=== PATIENT | female | born 1980 | race Caucasian/White ===

== ENCOUNTER 2017-06-07 12:07 | Emergency (ER) | payer OTHER ==
[~2017-06-07] VITALS: Ht 165.1 cm; Wt 88.5 kg
[~2017-06-07 12:07] MED LIST: ALBUTEROL INH; ASPIRIN325 PO; ATIVAN1 MG PO; AZITHROMYCIN; AZITHROMYCIN 2250 MG; BACID CAPLET1 EACH PO; CARAFATE 1 GM TA1 G1; CIPRO500 MG PO; CLEOCIN HCL300 MG; DARVON65 MG; DIPHENHIST50 MG PO; DOXYCYCLINE 10100 MG PO; HYDROXYCHLOROQ200 M1; HYDROXYZINE HCL25 M1 PO; LAMICTAL XR100 MG; MEPRON750 MG/5 M; NEURONTIN 300300 M1; NEURONTIN 300300 M1 PO; ONDANSETRON HCL4 M2 PO; OXYCODONE HCL5 M1 PO; PHENERGAN; PROVENTIL HFA6.7 G1 INH; TRINATE TABLET1 TAB PO; VERAPAMIL ER180 MG PO; [UNRECOGNIZED DRUG - OTHER]; [UNRECOGNIZED DRUG - OTHER] PO
[2017-06-07 12:33] LABS: URINE BILIRUBIN NEGATIVE (Negative); URINE BLOOD 3+ (Negative); URINE COLOR YELLOW; URINE GLUCOSE-RANDOM* NEGATIVE (Negative); URINE KETONES NEGATIVE (Negative); URINE NITRITE NEGATIVE (Negative); URINE PROTEIN (DIPSTICK) 1+ (Negative); URINE SPECIFIC GRAVITY 1.025 (1.003-1.035); URINE UROBILINOGEN 0.2 E.U./dl (0.2-1.0)
[2017-06-07 12:38] LABS: CASTS None Seen /LPF (None Seen); CRYSTALS None Seen /LPF (None Seen); SQUAMOUS 0-3 Few /LPF (0-3); URINE RBC >20 Many /HPF (0-2)
[2017-06-07 12:39] LABS: BACTERIA 1-9 Few /HPF (None Seen); URINE WBC 6-15 Few /HPF (0-5)
[2017-06-07 12:44] LABS: ABSOLUTE NEUTROPHILS 5.9 thou/uL (1.4-8.2); BASOPHILS 0.9 % (0.0-2.0); EOSINOPHILS 2.7 % (0.0-3.0); HEMATOCRIT 38.8 % (37.0-47.0); LYMPHOCYTES 30.3 % (24.0-44.0); MCH 28.4 pg (26.0-34.0); MCHC 33.5 g/dL (28.0-37.0); MCV 84.9 fL (80.0-100.0); MONOCYTES 6.6 % (1.0-8.0); PLATELET COUNT 272 thou/uL (150-400); POLYS 59.5 % (36.0-66.0); RBC 4.57 mil/uL (4.20-5.00); WBC 9.9 thou/uL (4.0-11.0)
[2017-06-07 12:46] LABS: MANUAL DIFF NO
[2017-06-07 12:55] LABS: CALCIUM 8.5 mg/dL (8.5-10.1); CREATININE 0.7 mg/dL (0.6-1.0); POTASSIUM 4.2 mmol/L (3.5-5.1)
[2017-06-07 14:31] VITALS: BP 139/94
[2017-06-09 01:08] LABS: CHLAMYDIA TRACHOMATIS-PCR Negative (Negative); NEISSERIA GONORRHEA-PCR Negative (Negative)
== END 2017-06-07 13:57 | disposition home or self-care (01) ==
LOC: ER 12:07
PROVIDERS: Physician Assistant
DX: N93.8 Other specified abnormal uterine and vaginal bleeding (principal); A69.20 Lyme disease, unspecified; F17.210 Nicotine dependence, cigarettes, uncomplicated; Z90.89 Acquired absence of other organs; Z88.1 Allergy status to other antibiotic agents; Z88.8 Allergy status to other drugs, medicaments and biological substances

== ENCOUNTER 2019-08-31 20:17 | Emergency (ER) | payer OTHER ==
[~2019-08-31] VITALS: Ht 165.1 cm; Wt 86.2 kg
[2019-08-31] MEDS ORDERED: OXYCODONE HCL15 MG PO (21:03)
[2019-08-31] MEDS ORDERED: EPIPEN0.3 MG/0.1 IM (21:04)
[2019-08-31] MEDS ORDERED: IBUPROFEN 600600 M1 PO (21:40)
[2019-08-31 22:01] VITALS: BP 174/98
== END 2019-08-31 21:50 | disposition home or self-care (01) ==
LOC: ER 20:17
DX: S50.11XA Contusion of right forearm, initial encounter (principal); S60.211A Contusion of right wrist, initial encounter; Z90.89 Acquired absence of other organs; Z88.1 Allergy status to other antibiotic agents; Z88.6 Allergy status to analgesic agent; Z88.8 Allergy status to other drugs, medicaments and biological substances; Z87.891 Personal history of nicotine dependence; W50.0XXA Accidental hit or strike by another person, initial encounter; Y92.89 Other specified places as the place of occurrence of the external cause; Y93.41 Activity, dancing; Y99.8 Other external cause status